=== PATIENT | female | born 2000 | race African-American/Black ===

== ENCOUNTER 2019-02-15 20:41 | Emergency (ER) | payer OTHER ==
[2019-02-15 20:54] VITALS: BP 135/80
--- NOTE | 2019-02-15 21:05 | UC ---
[facility] HPI - History of Current Complaint Chief Complaint: UCDentalProblem Stated Complaint: DENTAL COMPLAINT Time Seen by Provider: 02/15/19 20:52 Hx Last Menstrual Period: 02/03/19 Pain Intensity: 8 - Allergies/Home Medications Allergies/Adverse Reactions: Allergies Allergy/AdvReac Type Severity Reaction Status Date / Time amoxicillin Allergy Hives Verified 02/15/19 20:49 Home Medications: Home Medications Bcp 1 tab DAILY 02/15/19 [History Confirmed 02/15/19] PMH/Surg Hx/FS Hx/Imm Hx - Surgical History Surgical History: None - Social History Alcohol Use: None Substance Use Type: None Smoking Status (MU): Never Smoked Tobacco Physical Exam Vital Signs: Initial Vital Signs Temp 97.7 F 02/15/19 20:50 Pulse 85 02/15/19 20:50 Resp 16 02/15/19 20:50 BP 135/80 02/15/19 20:50 Pulse Ox 100 02/15/19 20:50 Dental Complaint Course/Dx - Differential Dx/Diagnosis Differential Diagnosis/Dx: Dental Abscess, Dental Caries, Gingivitis, Odontogenic Pain, Peridontic Disease Provider Diagnosis: Pain, dental Discharge ED - Sign-Out/Discharge Documenting (check all that apply): Patient Departure All imaging exams completed and their final reports reviewed: No Studies - Discharge Plan Condition: Stable Disposition: HOME Prescriptions: Clindamycin Cap(NF) [Clindamycin Cap 300 mg Cap(NF)] 300 mg PO TID #30 cap Naproxen [Naproxen 500 mg tab] 500 mg PO Q12HR PRN #30 tablet PRN Reason: Pain - Moderate Patient Education Materials: Toothache (ED) Referrals: No Primary Care Phys,NOPCP [Primary Care Provider] - Additional Instructions: Start clindamycin 300 mg three times a day for 10 days. Take acetaminophen (Tylenol) or ibuprofen (Advil, Motrin) according to directions as needed for pain. Be sure to rinse your mouth out with a warm salt water solution after every time you eat to remove any debris. Make an appointment with your dentist at next available appointment. Seek immediate medical attention in the emergency room if you develop fever greater than 100.5 F, you are unable to open of close your mouth, are unable to swallow, have difficulty breathing, or any worsening of symptoms. - Billing Disposition and Condition Condition: STABLE Disposition: Home
[2019-02-15] MEDS ORDERED: Naproxen TAB* 250 MG PO ONE (21:08)
[2019-02-15] MEDS ORDERED: Clindamycin CAP* 150 MG PO ONE (21:08)
== END 2019-02-15 21:22 | disposition home or self-care (01) ==
LOC: UCCORT 20:41
DX: K08.89 Other specified disorders of teeth and supporting structures (principal)
CPT/HCPCS: 99202; A9270-GY; G0463